=== PATIENT | male | born 1950 | race Caucasian/White ===

== ENCOUNTER 2016-09-02 09:05 | Emergency (ER) | payer MEDICARE, OTHER ==
[~2016-09-02] VITALS: Ht 167.6 cm; Wt 65.8 kg
[2016-09-02] MEDS ORDERED: ALLEGRA-D 12 H1 EACH PO (10:24)
[2016-09-02] MEDS ORDERED: TUMS500 MG PO (10:25)
[2016-09-02] MEDS ORDERED: PRILOSEC20 MG PO (10:25)
== END 2016-09-02 12:10 | disposition short-term general hospital (02) ==
LOC: ER 09:05
DX: K59.00 Constipation, unspecified (principal); K21.9 Gastro-esophageal reflux disease without esophagitis; Z79.899 Other long term (current) drug therapy